=== PATIENT | male | born 1965 | race Caucasian/White ===

== ENCOUNTER 2016-12-04 12:11 | Emergency (ER) | payer MEDICAID ==
[~2016-12-04] VITALS: Ht 167.6 cm; Wt 105.0 kg
[2016-12-04] MEDS ORDERED: KETOROLAC 60MG/2ML VIAL IM ONE (12:45)
[2016-12-04 14:25] VITALS: BP 122/84
== END 2016-12-04 15:03 | disposition home or self-care (01) ==
LOC: ER 12:35
DX: S70.01XA Contusion of right hip, initial encounter (principal); V03.00XA Pedestrian on foot injured in collision with car, pick-up truck or van in nontraffic accident, initial encounter; Y93.89 Activity, other specified; Y92.511 Restaurant or cafe as the place of occurrence of the external cause
CPT/HCPCS: 73502; 96372; 99284; J1885